=== PATIENT | female | born 1970 | race Caucasian/White ===

== ENCOUNTER 2023-09-09 06:57 | Outpatient (OUT) | payer OTHER, SELFPAY ==
--- NOTE | 2023-09-09 06:59 | MM_ITS ---
Patient Name: KLEVER MENDOZA MR#: [id number] : 1970 Exam Date: 09/09/2023 Ordering Doctor: DR Karsten Tirado . RADIOLOGY REPORT PROCEDURE: MM TOMOSYNTHESIS SCREENING BI COMPARISON: MG MAMM SCREEN 3D TREY CAD, 06/15/2022. MG MAMM TREY DIAG W CAD, 08/17/2019. INDICATIONS: Screening Calculator Name NCI Breast Cancer Risk Assessment Tool 5 Year Breast Cancer Risk 1.20% Lifetime Breast Cancer Risk 10.80% Personal Breast Cancer No Personal Ovarian Cancer No Treatments None Family Cancers None LOCATION: [facility] BREAST COMPOSITION: There are scattered areas of fibroglandular density. FINDINGS: DIAGNOSTIC CATEGORY 2--BENIGN FINDING. NO CHANGE FROM COMPARISON. Scattered benign-appearing nodules are present. Scattered benign-appearing calcifications are present. Scattered benign-appearing lymph nodes are present. RIGHT BREAST: No significant suspicious finding. LEFT BREAST: No significant suspicious finding. RECOMMENDATIONS: ROUTINE MAMMOGRAM AND CLINICAL EVALUATION IN 12 MONTHS. PLEASE NOTE: A NORMAL MAMMOGRAM DOES NOT EXCLUDE THE POSSIBILITY OF BREAST CANCER. A CLINICALLY SUSPICIOUS PALPABLE LUMP SHOULD BE BIOPSIED. Dictated by: Trey Jain MD on 09/09/2023 at 08:47 Approved by: Trey Jain MD on 09/09/2023 at 08:48
== END 2023-09-09 06:58 | disposition home or self-care (01) ==
LOC: MAMMO 06:57
PROVIDERS: PCP Family Medicine; Visit Provider Family Medicine
DX: Z12.31 Encounter for screening mammogram for malignant neoplasm of breast (principal)
CPT/HCPCS: 77063; 77067